=== PATIENT | female | born 1980 | race Caucasian/White ===

== ENCOUNTER → 2025-02-14 | Outpatient (CLI) | payer BC | END | disposition home or self-care (01) | LOC: MRI 14:21 | PROVIDERS: ATTEND Chiropractor | DX: S31.010A Laceration without foreign body of lower back and pelvis without penetration into retroperitoneum, initial encounter (principal); M48.07 Spinal stenosis, lumbosacral region; M54.50 Low back pain, unspecified; X58.XXXA Exposure to other specified factors, initial encounter; Y93.89 Activity, other specified; Y92.89 Other specified places as the place of occurrence of the external cause; Y99.8 Other external cause status ==